=== PATIENT | female | born 1930 | race Caucasian/White ===

== ENCOUNTER → 2017-10-19 | Outpatient (CLI) | payer MEDICARE ==
--- NOTE | 2017-10-19 14:33 | XR ---
EXAMINATION TYPE: XR lumbar spine 2 or 3V DATE OF EXAM: 10/19/2017 COMPARISON: NONE HISTORY: 79 year-old female right-sided sciatica and right low back pain from lifting 2 weeks ago TECHNIQUE: 3 views FINDINGS: 5 lumbar type vertebral bodies. There is mild superior endplate deformity of T12 and marked anterior compression deformity of L1 with some retropulsion into the ventral spinal canal. Hypertrophic facet arthropathy throughout with grad e 2 anterolisthesis at L5-S1. Osteopenia. IMPRESSION: 1. Marked anterior compression collapse of L1 with some retropulsion into the ventral spinal canal. C orrelate for focal pain at this level to determinate acuity. 2. Superior endplate deformity of T12 is age-indeterminate. Again, correlate for focal pain at this l evel. 3. Hypertrophic facet arthropathy. There is grade 2 anterolisthesis at L5-S1.
== END | disposition home or self-care (01) ==
LOC: RADXRMAIN 14:07
PROVIDERS: ATTEND Family Medicine
DX: M43.16 Spondylolisthesis, lumbar region (principal); M48.56XA Collapsed vertebra, not elsewhere classified, lumbar region, initial encounter for fracture; M43.8X4 Other specified deforming dorsopathies, thoracic region; M46.87 Other specified inflammatory spondylopathies, lumbosacral region
CPT/HCPCS: 72100

== ENCOUNTER → 2017-11-28 | Outpatient (CLI) | payer MEDICARE ==
--- NOTE | 2017-11-28 15:49 | NM ---
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 Compr ession deformity of L1 Delayed whole-body scanning was performed following the injection of 26.1 mCi Tc 99m MDP. Images acq uired 3 hours post injection. FINDINGS: There is intense radiotracer uptake at the anterior margin of the approximately seventh rib on the ri ght, L4 vertebral body, L5 vertebral body, and right greater trochanter as well as to a lesser degree of the lateral proximal diaphysis of the right femur. Mild radiotracer uptake is seen at L1 and to a lesser degree at T12. Radiotracer uptake throughout th e thoracic spine that is mild may relate to an exaggerated thoracic kyphosis and patient positioning or suspected degenerative change. At the posterior margins of the left ribs 9 through 11 faint radiot racer uptake is seen in a linear distribution likely related to healing rib fractures. Symmetric upta ke throughout the shoulders, acromioclavicular joints, and metatarsals as well as to a lesser degree within the knees, elbows and wrists are most commonly related to arthropathy. IMPRESSION: 1. Suspicious focal radiotracer uptake within the L4 vertebral body, L5 vertebral body, right greater trochanter, right proximal femur, and the anterior margin of approximately rib 7 on the right. These are concerning for metastasis, especially given the provided history of abnormal bone marrow signal of L4-L5 on an outside MRI. 2. Mild radiotracer uptake at L1 corresponding to the known compression deformity suggests subacute t o chronic fracture. 3. Additional findings most consistent with degenerative changes of the axial and appendicular skelet on.
== END | disposition home or self-care (01) ==
LOC: RADNMMAIN 10:34
PROVIDERS: ATTEND Orthopaedic Surgery Orthopaedic Surgery of the Spine
DX: M54.5 Low back pain (principal); M51.36 Other intervertebral disc degeneration, lumbar region; S32.010D Wedge compression fracture of first lumbar vertebra, subsequent encounter for fracture with routine healing; M47.816 Spondylosis without myelopathy or radiculopathy, lumbar region; M43.17 Spondylolisthesis, lumbosacral region; R93.7 Abnormal findings on diagnostic imaging of other parts of musculoskeletal system
CPT/HCPCS: 78306; A9503

== ENCOUNTER → 2017-11-29 | Outpatient (CLI) | payer MEDICARE ==
[2017-11-29 15:19] LABS: Basophils % (A) 1 %; Eosinophils # (A) 0.1 k/uL (0-0.7); Eosinophils % (A) 3 %; HCT 36.9 % (34.0-46.0); HGB 11.6 gm/dL (11.4-16.0); Lymphocytes # (A) 1.6 k/uL (1.0-4.8); Lymphocytes % (A) 37 %; MCH 30.2 pg (25.0-35.0); MCHC 31.5 g/dL (31.0-37.0); MCV 95.9 fL (80.0-100.0); Mean Platelet Volume 7.5; Monocytes # (A) 0.4 k/uL (0-1.0); Monocytes % (A) 11 %; Neutrophils % (A) 46 %; Platelet Count 209 k/uL (150-450); RBC 3.85 m/uL (3.80-5.40); RDW 13.6 % (11.5-15.5); WBC 4.2 k/uL (3.8-10.6)
[2017-11-29 15:24] LABS: ALT 21 U/L (9-52); AST 24 U/L (14-36); Albumin 3.4 g/dL (3.5-5.0); Alkaline Phosphatase 130 U/L (38-126); Anion Gap 9 mmol/L; Blood Urea Nitrogen 26 mg/dL (7-17); Calcium 9.4 mg/dL (8.4-10.2); Carbon Dioxide 32 mmol/L (22-30); Chloride 102 mmol/L (98-107); Glucose 170 mg/dL (74-99); Potassium 3.5 mmol/L (3.5-5.1); Sodium 143 mmol/L (137-145); Total Bilirubin 0.4 mg/dL (0.2-1.3); Total Protein 6.1 g/dL (6.3-8.2)
[2017-11-29 19:22] LABS: Protein, Total 6.1 g/dL (6.2-8.2)
[2017-11-29 19:46] LABS: Beta 2 Microglobulin 4.22 mg/L (0.61-2.37)
[2017-12-01 11:28] LABS: Albumin 3.36 g/dL (3.80-4.90); Gamma Globulin 0.96 g/dL (0.70-1.50)
== END | disposition home or self-care (01) ==
LOC: LABWHC1 14:05
PROVIDERS: ATTEND Orthopaedic Surgery Orthopaedic Surgery of the Spine
DX: M51.36 Other intervertebral disc degeneration, lumbar region (principal); S32.010D Wedge compression fracture of first lumbar vertebra, subsequent encounter for fracture with routine healing; M47.816 Spondylosis without myelopathy or radiculopathy, lumbar region; M43.17 Spondylolisthesis, lumbosacral region; R93.8 Abnormal findings on diagnostic imaging of other specified body structures
CPT/HCPCS: 36415; 80053; 82232; 82784; 83883; 84165; 84166; 85025; 86334